=== PATIENT | female | born 1960 | race American Indian/Alaskan Native ===

== ENCOUNTER 2017-01-20 16:05 | Emergency (ER) | payer BC ==
[2017-01-20] MEDS ORDERED: CATAPRES PO ONE (16:20)
[2017-01-20] MEDS ORDERED: FIORICET PO ONE (16:25)
--- NOTE | 2017-01-20 16:28 | Emergency Department Report ---
HPI - General Chief Complaint: Headache Time Seen by Provider: 01/20/17 16:19 - HPI HPI: Room 7 The patient is a 56-year-old female presenting with a chief complaint of headache. The patient states that she's had a diffuse headache since yesterday. Patient states the headache is constant and "nagging" in nature. Patient denies nausea/vomiting, fever or preceding trauma. Patient denies any other complaints. The patient currently gets her headache is score of 5/10 Location: Head Duration: Constant since yesterday Quality: "Nagging" Severity:5/10 Modifying factors: [see above] Context: [see above] Mode of transportation: [not driving] ED Past Medical Hx - Past Medical History Previous Medical History?: Yes Hx Hypertension: Yes Hx Diabetes: No (prediabetes) Hx Asthma: Yes - Surgical History Past Surgical History?: Yes Additional Surgical History: Tonisillectomy - Family History Family history: no significant - Social History Smoking Status: Never Smoker Substance Use Type: None (denies illicit drug use), Alcohol (occasional) - Medications Home Medications: Home Medications Medication Instructions Recorded Confirmed Last Taken Type Hydrochlorothiazide [HCTZ] 25 mg PO QDAY 12/10/14 12/10/14 12/10/14 History predniSONE [Deltasone] 20 mg PO TID #12 tab 12/10/14 Unknown Rx Butalb/Acetamin/Caff 50-325-40 2 tab PO Q8HR PRN #10 tablet 01/20/17 Unknown Rx [Fioricet] ED Review of Systems ROS: Stated complaint: HEADACHE,BLURRED VISION Other details as noted in HPI Comment: All other systems reviewed and negative Constitutional: denies: chills, fever Eyes: denies: eye pain, eye discharge, vision change ENT: denies: ear pain, throat pain Respiratory: denies: cough, shortness of breath, wheezing Cardiovascular: denies: chest pain, palpitations Endocrine: no symptoms reported Gastrointestinal: denies: abdominal pain, nausea, diarrhea Genitourinary: denies: urgency, dysuria, discharge Musculoskeletal: denies: back pain, joint swelling, arthralgia Skin: denies: rash, lesions Neurological: headache Psychiatric: denies: anxiety, depression Hematological/Lymphatic: denies: easy bleeding, easy bruising Physical Exam - Physical Exam Vital Signs: Vital Signs 01/20/17 16:10 Temperature 98.8 F Pulse Rate 85 Respiratory 20 Rate Blood Pressure 180/103 O2 Sat by Pulse 98 Oximetry Physical Exam: GENERAL: The patient is well-developed well-nourished female lying on stretcher not appearing to be in acute distress. [] HEENT: Normocephalic. Atraumatic. Extraocular motions are intact. Patient has moist mucous membranes. NECK: Supple. No meningitic signs are noted. Trachea midline CHEST/LUNGS: Clear to auscultation. There is no respiratory distress noted. HEART/CARDIOVASCULAR: Regular. There is no tachycardia. There is no gallop rub or murmur. ABDOMEN: Abdomen is soft, nontender. Patient has normal bowel sounds. There is no abdominal distention. SKIN: There is no rash. There is no edema. There is no diaphoresis. NEURO: The patient is awake, alert, and oriented. The patient is cooperative. The patient has no focal neurologic deficits. The patient has normal speech. Cranial nerves II through XII grossly intact, no drift. Normal sensation throughout MUSCULOSKELETAL: There is no evidence of acute injury. ED Course Vital Signs 01/20/17 16:10 Temperature 98.8 F Pulse Rate 85 Respiratory 20 Rate Blood Pressure 180/103 O2 Sat by Pulse 98 Oximetry - Reevaluation(s) Reevaluation #1: 01/20/17 17:45 Patient states she feels improved. BP 168 systolic ED Medical Decision Making - Lab Data Result diagrams: 01/20/17 16:41 01/20/17 16:41 Laboratory Tests 01/20/17 01/20/17 01/20/17 16:41 16:41 16:41 WBC 5.7 RBC 4.88 Hgb 12.5 Hct 38.9 MCV 80 MCH 26 L MCHC 32 RDW 15.4 H Plt Count 265 Lymph % (Auto) 30.8 [place] % (Auto) 10.0 H Eos % (Auto) 1.5 Baso % (Auto) 0.9 Lymph # 1.8 [place] # 0.6 Eos # 0.1 Baso # 0.1 Seg Neutrophils % 56.8 Seg Neutrophils # 3.2 PT 14.1 INR 1.04 APTT 32.6 Thrombin Time Sodium 142 Potassium 4.1 Chloride 100.2 Carbon Dioxide 31 H Anion Gap 15 BUN 9 Creatinine 0.4 L Estimated GFR > 60 BUN/Creatinine Ratio 23 Glucose 84 POC Glucose Calcium 9.9 Troponin T < 0.010 01/20/17 01/20/17 16:41 16:44 WBC RBC Hgb Hct MCV MCH MCHC RDW Plt Count Lymph % (Auto) [place] % (Auto) Eos % (Auto) Baso % (Auto) Lymph # [place] # Eos # Baso # Seg Neutrophils % Seg Neutrophils # PT INR APTT Thrombin Time 16.0 Sodium Potassium Chloride Carbon Dioxide Anion Gap BUN Creatinine Estimated GFR BUN/Creatinine Ratio Glucose POC Glucose 83 Calcium Troponin T - EKG Data -: EKG Interpreted by Me EKG shows normal: sinus rhythm Rate: normal - EKG Data When compared to previous EKG there are: no significant change Interpretation: unchanged when compared t (02/13/2014) - Radiology Data Radiology results: report reviewed (CT head), image reviewed (CT head) CT head (read by radiologist) was severe right otomastoiditis without acute intracranial CT abnormalities. - Differential Diagnosis hypertensive urgency, uncontrolled hypertension, ICH, headache Critical care attestation.: If time is entered above; I have spent that time in minutes in the direct care of this critically ill patient, excluding procedure time. ED Disposition Clinical Impression: Hypertension, Headache, Mastoiditis of right side Disposition: DC-01 TO HOME OR SELFCARE Is pt being admited?: No Does the pt Need Aspirin: No Condition: Stable Instructions: Hypertension (ED) Additional Instructions: Return to the emergency department immediately should you develop worsening symptoms, fever, inability to tolerate food or liquid or any other concerns. Prescriptions: Butalb/Acetamin/Caff 50-325-40 [Fioricet] 2 tab PO Q8HR PRN #10 tablet PRN Reason: Headache Referrals: PRIMARY CARE, [Primary Care Provider] - 3-5 Days SONU THRASHER MD [Staff Physician] - [facility] (Dr. Thrasher is an otolaryngologists (ear nose and throat doctor). Please follow with her for further evaluation of your mastoiditis) Time of Disposition: 17:46
[2017-01-20 16:53] LABS: Basophils % (Auto) 0.9 % (0.0-1.8); Eosinophils % (Auto) 1.5 % (0.0-4.3); Hematocrit 38.9 % (30.3-42.9); Hemoglobin 12.5 gm/dl (10.1-14.3); Mean Corpuscular HGB Conc 32 % (30-34); Mean Corpuscular Volume 80 fl (79-97); Platelet Count 265 K/mm3 (140-440); Red Blood Count 4.88 M/mm3 (3.65-5.03); Red Cell Distribution Width 15.4 % (13.2-15.2); White Blood Count 5.7 K/mm3 (4.5-11.0)
[2017-01-20 16:54] LABS: Mean Corpuscular Hemoglobin 26 pg (28-32)
--- NOTE | 2017-01-20 16:59 | Cat Scan Report ---
CT HEAD WITHOUT CONTRAST INDICATION: Neurologic deficits < 6 hours or symptoms present upon awakening. COMPARISON: None similar. FINDINGS: Noncontrast head CT demonstrates normal ventricles and sulci without acute or recent infarct, hemorrhage, mass effect or midline shift. No abnormal extra-axial fluid collections. Posterior fossa structures and basilar cisterns appear within normal limits. Symmetric eye globes. Clear paranasal sinuses and left mastoid air cells. Extensive right mastoid air cell opacification with some middle ear fluid also noted. Intact calvarium. Normal overlying scalp soft tissues. CONCLUSION: Severe right otomastoiditis without acute intracranial CT abnormality, as described. If focal neurologic deficits or strong clinical suspicion for an acute infarction exist, additional assessment as with MRI may be considered, as appropriate. Thank you for the opportunity to participate in this patient's care.
[2017-01-20 17:03] LABS: INR 1.04 (0.87-1.13); Partial Thromboplastin Time 32.6 Sec. (24.2-36.6)
[2017-01-20 17:21] LABS: Anion Gap 15 mmol/L; BUN/Creatinine Ratio 23; Blood Urea Nitrogen 9 mg/dL (7-17); Calcium 9.9 mg/dL (8.4-10.2); Carbon Dioxide 31 mmol/L (22-30); Chloride 100.2 mmol/L (98-107); Glucose 84 mg/dL (65-100); Potassium 4.1 mmol/L (3.6-5.0); Sodium 142 mmol/L (137-145)
[2017-01-20 18:06] VITALS: BP 141/86
== END 2017-01-20 18:04 | disposition home or self-care (01) ==
LOC: ED 16:05
DX: I10 Essential (primary) hypertension (principal); H70.91 Unspecified mastoiditis, right ear; R51 Headache; J45.909 Unspecified asthma, uncomplicated; Z91.040 Latex allergy status
CPT/HCPCS: 36415; 70450; 80048; 82962; 84484; 85025; 85610; 85670; 85730; 93005; 93010

== ENCOUNTER 2017-09-13 16:56 | Emergency (ER) | payer OTHER ==
[2017-09-13] MEDS ORDERED: MOTRIN PO ONE (18:21)
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
[2017-09-13 20:54] VITALS: BP 183/82
== END 2017-09-13 20:55 | disposition home or self-care (01) ==
LOC: ED 16:56
DX: S39.012A Strain of muscle, fascia and tendon of lower back, initial encounter (principal); I10 Essential (primary) hypertension; J45.909 Unspecified asthma, uncomplicated; Z90.89 Acquired absence of other organs; Z91.040 Latex allergy status; V49.59XA Passenger injured in collision with other motor vehicles in traffic accident, initial encounter; Y93.89 Activity, other specified; Y99.8 Other external cause status; Y92.488 Other paved roadways as the place of occurrence of the external cause
CPT/HCPCS: 99282